=== PATIENT | female | born 2000 | race Caucasian/White ===

== ENCOUNTER 2024-05-21 19:54 | Emergency (ER) | payer BC, SELFPAY ==
[2024-05-21 19:56] VITALS: BP 126/91
[2024-05-21 20:24] LABS: % Basophils 0.6 % (0-2); % Eosinophils 2.5 % (0-6); % Immature Granulocytes 0.3 % (0-0.5); % Lymphocytes 25.5 % (20.5-51.1); % Monocytes 5.7 % (1.7-9.3); % Neutrophils 65.4 % (42.2-75.2); Absolute Basophils 0.1 10^3/uL (0-0.2); Absolute Eosinophils 0.3 10^3/uL (0-0.7); Absolute Lymphocytes 2.7 10^3/uL (1.2-3.4); Absolute Monocytes 0.6 10^3/uL (0.1-0.6); Absolute Neutrophils 6.9 10^3/uL (1.4-6.5); Hematocrit 42.7 % (37.0-47.0); Hemoglobin 14.1 g/dL (12.0-16.0); Mean Corpuscular Hgb 28.5 pg (27.0-31.0); Mean Corpuscular Volume 86.3 fL (81.0-99.0); Mean Platelet Volume 9.9 fL (7.4-10.4); Nucleated Red Blood Cells % 0 %; Platelet Count 284 10^3/uL (130-400); Red Blood Cell Count 4.95 10^6/uL (4.20-5.40); Red Cell Dist. Width 13.4 % (11.5-14.5); White Blood Cell Count 10.5 10^3/uL (4.8-10.8)
[2024-05-21 20:26] LABS: Urine Albumin Negative (Neg - Trace); Urine Bilirubin Negative (Negative); Urine Character Clear (Clear); Urine Glucose Negative (Negative); Urine Ketone Negative (Negative); Urine Leukocyte Negative (Negative); Urine Nitrite Negative (Negative); Urine Occult Blood Negative (Negative); Urine Specific Gravity 1.015 (<1.030); Urine Urobilinogen Negative (Neg - 1+)
[2024-05-21 20:29] LABS: Urine Color Yellow
[2024-05-21 20:35] LABS: HCG, Serum Qualitative Screen Negative
[2024-05-21 20:39] LABS: ALT (SGPT) < 10 U/L (0-35); AST (SGOT) 16 U/L (14-36); Albumin 5.4 g/dl (3.5-5.0); Alkaline Phosphatase 74 U/L (38-126); Blood Urea Nitrogen 14 mg/dl (7-17); Calcium 9.8 mg/dl (8.4-10.2); Carbon Dioxide 21 mmol/L (22-30); Chloride 101 mmol/L (98-107); Glucose 94 mg/dl (70-99); Potassium 4.1 mmol/L (3.5-5.1); Sodium 136 mmol/L (135-145); Total Bilirubin 0.7 mg/dl (0.2-1.3); Total Protein 8.2 g/dl (6.3-8.2); eGFR > 60.00
[2024-05-21 22:11] VITALS: BP 115/67
[2024-05-21 22:31] VITALS: BP 126/74
[2024-05-21 22:34] VITALS: BMI 28.6
[2024-05-21 23:00] VITALS: BP 116/64
--- NOTE | 2024-05-21 23:17 | ED.GENMED ---
History of Present Illness
General
Chief Complaint: Abdominal Symptoms
Time Seen by Provider: 05/21/24 23:02
History of Present Illness
History of Present Illness:
Patient is a 23-year-old woman presenting to the urgency department with vomiting and diarrhea. Patient states that 2 days ago she developed significant abdominal pain that caused her to pass out twice. She then had an episode of diarrhea.
Yesterday she developed some nausea and diffuse abdominal cramping that comes in waves. Today she did get lightheaded dizzy secondary to the pain. She did not pass out. She states that she has not had any further episodes of diarrhea. She has
been tolerating p.o. but mostly liquids. She denies any fevers chills. No travel. She was on Augmentin but stopped that about a week ago.
Phy Exam
Physical Exam
Physical Exam:
GENERAL: in no acute distress
HEENT: normocephalic, extraocular movements intact, moist oral mucosa
NECK: normal inspection
RESPIRATORY: no respiratory distress, clear to auscultation bilaterally
CARDIOVASCULAR: regular rate and rhythm
ABDOMEN/: soft, non-distended, non-tender to palpation, no rebound or guarding
EXTREMITIES: non-tender, no edema/swelling
NEUROLOGIC: awake and alert, moves all extremities
SKIN: warm
Course
Orders/Labs/Results
Orders:
Orders
05/21/24 20:00
Test Result ONCE
05/21/24 20:12
Complete Blood Count/With Diff Urgent
Comprehensive Metabolic Panel Urgent
HCG, Serum Qualitative Screen Urgent
Urinalysis Reflex To Culture Urgent
Date Specimen was Collected: 05/21/24
Time Specimen was Collected: 20:00
05/21/24 23:03
Electrocardiogram (*1) Urgent
Reason for Study: Vertigo / Dizzy
EKG- Treatment ONCE
05/21/24 23:10
Ondansetron Orally Disint [Zofran Odt (Orally Disintegrating)] 4 mg PO NOW STA
05/22/24 00:11
0.9% Sodium Chloride 1000 ml [Nss] 1,000 ml IV BOLUS
Ketorolac [Toradol] 15 mg IV NOW STA
Metoclopramide [Reglan] 10 mg IV NOW STA
05/22/24 00:12
CT Abd/pelvis W Iv Cont Urgent
Comment:
Reason For Exam: abdominal pain
Abnormal Lab Results
05/21/24
20:12
Absolute Neuts (auto) 6.9 H 10^3/uL
(1.4-6.5)
Carbon Dioxide 21 L mmol/L
(22-30)
Albumin 5.4 H g/dl
(3.5-5.0)
05/21/24 20:12
05/21/24 20:12
Vital Signs
Initial and Last Documented VS:
Initial Vital Signs
Temp Pulse Resp BP Pulse Ox
97.9 F 83 18 126/91 96
05/21/24 19:56 05/21/24 19:56 05/21/24 19:56 05/21/24 19:56 05/21/24 19:56
Last Documented Vital Signs
Temp Pulse Resp BP Pulse Ox
97.9 F 77 20 117/77 96
05/21/24 19:56 05/22/24 00:30 05/21/24 22:31 05/22/24 00:12 05/22/24 00:30
MDM/Problems Addressed
Differential Diagnosis Includes:
Patient is a 23-year-old woman presenting to the emergency department with nausea abdominal pain and diarrhea. Vitals unremarkable and on exam she does have a soft benign abdomen and she does appear well-hydrated. Likely viral gastroenteritis.
Could be UTI versus . The syncope in the near syncope is likely vasovagal given that it it occurs shortly after the abdominal pain. Blood work obtained prior to my evaluation is unremarkable. Urinalysis negative. She is not .
Will give Zofran and trial p.o. to make sure the nausea has resolved.
*Critical Care Note
Total Time (30-74mins, 75-104mins- exclusive of procedures): Not Applicable
Update Note
Update Note:
On reevaluation patient with significant nausea and lightheadedness after receiving the Zofran. She is complaining of worsening pain. Will proceed with CT scan and give Toradol and Reglan as well as IV fluids.
CT scan per my interpretation with the constipation. Per the preliminary report no acute findings. Patient is tolerating p.o. Will discharge at this time. Will send short prescription of Zofran.
ED Attending Note
-
Portions of this chart may have been created with voice recognition software.� Occasional wrong word or��sound alike� substitutions may have occurred due to the inherent limitations of voice recognition software.
Discharge Plan
Departure
Patient Disposition: Home (Routine Discharge)
Date of Disposition: 05/22/24
Time of Disposition: 02:43
Patient with high blood pressure during this ER visit?: No
Discharge Problem:
Gastroenteritis
Instructions: Clear Liquid Diet, Nausea and Vomiting, Adult (DC)
Prescriptions:
New
ondansetron 4 mg tablet,disintegrating
4 mg PO DAILY PRN (Reason: nausea and vomiting) 3 Days Qty: 7 0RF
Activity Restrictions/Additional Instructions:
You have been evaluated in the Emergency Department today for nausea and abdominal pain. Your evaluation suggests that your symptoms are most likely due to viral illness which will improve on its own with rest and fluids. Remember to drink plenty of
fluids at home.
Please follow up with your primary care physician within two days.
Return to the Emergency Department if you experience worsening or uncontrolled pain, inability to tolerate fluids by mouth, difficulty breathing, fevers 100.4�F or greater, recurrent vomiting, or any other concerning symptoms.
Thank you for choosing us for your care.
Interventions
Interventions:
*Risk Screen - Suicide Last Done: 05/21/24 19:56
*General Assessment Last Done: 05/21/24 19:56
*Neglect/Abuse Screening Last Done: 05/21/24 19:56
ED- Fall Risk Assessment Last Done: 05/21/24 22:36
*ED COVID-19 Vaccine History Last Done: 05/21/24 22:36
OD-Dreref-Emcefjbhag Assessment Last Done: 05/21/24 22:36
Discharge Date and Time
Print Language: BHUTANESE
[2024-05-21] MEDS: ZOFRAN ODT (ORALLY DISINTEGRATING) 4 MG PO (23:36)
[2024-05-22] VITALS: BP 113/82
[2024-05-22 00:12] VITALS: BP 117/77
[2024-05-22] MEDS: REGLAN 10 MG IV (00:14)
[2024-05-22] MEDS: NSS 1000 IV (00:14)
[2024-05-22] MEDS: TORADOL 15 MG IV (00:15)
[2024-05-22 01:00] VITALS: BP 102/59
[2024-05-22 02:00] VITALS: BP 107/56
--- NOTE | 2024-05-22 02:39 | DOWNTIME ---
There was a [employer] Downtime on 05/22/2024 from 0100 to 05/22/2023 at 0235 . Downtime documentation of patient's care, including medication administrations, has been reconciled in the electronic record per guidelines. Refer to the
patient's paper chart under the miscellaneous tab to see printed paper medication records and downtime forms.
== END 2024-05-22 02:54 | disposition home or self-care (01) ==
LOC: EMR 19:54
PROVIDERS: EMERGENCY PHYSICIAN Student in an Organized Health Care Education/Training Program; FAMILY PHYSICIAN Nurse Practitioner Family
DX: K52.9 Noninfective gastroenteritis and colitis, unspecified (principal)
CPT/HCPCS: 99285; 96374; 96361; 74177; 80053; 81003; 84703; 85025; 93005; Q9967